=== PATIENT | female | born 2000 | race African-American/Black ===

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

== ENCOUNTER 2022-04-29 17:49 | Emergency (ER) | payer OTHER ==
[2022-04-29 18:30] VITALS: BP 118/62; PULSE 95; RESP 18; TEMP 98; BMI 21.6
[2022-04-29 20:59] LABS: EPI CELLS 11 /uL (0-25.1); HYALINE CASTS 164 /uL (0-3.1); URINE APPEARANCE TURBID; URINE BACTERIA 1730 /uL (0-1359); URINE BILIRUBIN 2+ (NEGATIVE); URINE COLOR RED; URINE GLUCOSE (UA) NEGATIVE (NEGATIVE); URINE KETONE NEGATIVE (NEGATIVE); URINE LEUK ESTERASE 2+ (NEGATIVE); URINE NITRITE POSITIVE (NEGATIVE); URINE PROTEIN 3+ (NEGATIVE); URINE RBC 10249 /uL (0-23.9); URINE UROBILINOGEN 0.2 mg/dL (0.2-1.0); URINE WBC 502 /uL (0-25.8)
[2022-04-29 21:03] LABS: HCG,QUALITATIVE URINE Positive
[2022-04-29 21:11] LABS: BASO % 0.6 % (0-2.0); HEMATOCRIT 38.6 % (32.4-45.2); HEMOGLOBIN 12.2 GM/dL (10.7-15.3); LYMPH % 20.1 % (8-40); MCH 24.9 pg (25.7-33.7); MCHC 31.7 g/dl (32.0-36.0); MEAN CELL VOLUME 78.6 fl (80-96); MEAN PLT VOLUME 8.5 fl (7.5-11.1); MONO % 10.3 % (3.8-10.2); PLATELET COUNT 348 10^3/uL (134-434); RBC 4.91 M/mm3 (3.60-5.2); RDW 15.9 % (11.6-15.6)
[2022-04-29 21:39] LABS: CALCIUM 8.8 mg/dL (8.5-10.1)
[2022-04-29 21:40] LABS: ALBUMIN 3.8 g/dl (3.4-5.0); BLOOD UREA NITROGEN 3.6 mg/dL (7-18)
[2022-04-29 21:43] LABS: CREATININE 0.6 mg/dL (0.55-1.3)
[2022-04-29 21:45] LABS: BILIRUBIN,TOTAL 0.4 mg/dL (0.2-1); TOT PROT 7.8 g/dl (6.4-8.2)
== END 2022-04-30 00:18 | disposition home or self-care (01) ==
LOC: JERFT 17:49 → JER 17:49 → JERFT 04-30 00:18
DX: O20.9 Hemorrhage in early pregnancy, unspecified (principal); Z3A.01 Less than 8 weeks gestation of pregnancy
CPT/HCPCS: 36415; 76817-TC; 80053; 81003; 84702; 84703; 85025; 86850; 86900; 86901; 87086; 99284-25

== ENCOUNTER 2022-05-01 18:10 | Emergency (ER) | payer OTHER ==
[2022-05-01 18:29] VITALS: BP 112/64; PULSE 87; RESP 20; TEMP 98.1; BMI 21.6
== END 2022-05-01 20:21 | disposition home or self-care (01) ==
LOC: JERFT 18:10 → JER 18:10 → JERFT 20:21
DX: O03.9 Complete or unspecified spontaneous abortion without complication (principal); Z3A.01 Less than 8 weeks gestation of pregnancy
CPT/HCPCS: 36415; 84702; 99283-25

== ENCOUNTER 2022-08-20 00:09 | Emergency (ER) | payer OTHER ==
[2022-08-20 00:20] VITALS: BP 110/60; PULSE 91; RESP 18; TEMP 97.7; BMI 22.4
[2022-08-20 01:49] LABS: BASO % 0.3 % (0-2.0); HEMATOCRIT 34.3 % (32.4-45.2); HEMOGLOBIN 11.7 GM/dL (10.7-15.3); LYMPH % 6.9 % (8-40); MCH 26.5 pg (25.7-33.7); MCHC 34.1 g/dl (32.0-36.0); MEAN CELL VOLUME 77.7 fl (80-96); MEAN PLT VOLUME 8.1 fl (7.5-11.1); NEUT % 82.8 % (42.8-82.8); PLATELET COUNT 229 10^3/uL (134-434); RBC 4.42 M/mm3 (3.60-5.2); RDW 15.9 % (11.6-15.6); WHITE BLOOD COUNT 17.8 K/mm3 (4.0-10.0)
[2022-08-20] MEDS ORDERED: ACETAMINOPHEN 1000 MG/100 ML BAG IVPB ONE (01:50)
[2022-08-20] MEDS ORDERED: SODIUM CHLORIDE 0.9% 500 ML INFUS.BAG IV ONE ×2 (01:53→04:05)
[2022-08-20 01:58] LABS: INR 1.33 (0.83-1.09); PROTHROMBIN TIME (PATIENT) 15.4 SEC (9.7-13.0)
[2022-08-20 02:00] LABS: ACTIVATED PTT 27.1 SECONDS (25.2-36.5)
[2022-08-20] MEDS ORDERED: ACETAMINOPHEN INJECTION 100 ML IVPB ONE (02:01)
[2022-08-20 02:12] LABS: POTASSIUM 3.5 mmol/L (3.5-5.1)
[2022-08-20] MEDS ORDERED: MAG HYDROX/AL HYDROX/SIMETH 30 ML UNIT-DOSE CUP PO ONE (02:13)
[2022-08-20] MEDS ORDERED: ONDANSETRON 4 MG/2 ML VIAL IVPUSH ONE (02:13)
[2022-08-20] MEDS ORDERED: ONDANSETRON 4 MG/2 ML VIAL ONE (02:14)
[2022-08-20] MEDS ORDERED: MAG HYDROX/AL HYDROX/SIMETH 30 ML UNIT-DOSE CUP ONE (02:14)
[2022-08-20 02:15] LABS: ALBUMIN 3.7 g/dl (3.4-5.0); BLOOD UREA NITROGEN 8.5 mg/dL (7-18); CALCIUM 8.6 mg/dL (8.5-10.1)
[2022-08-20 02:18] LABS: CREATININE 0.6 mg/dL (0.55-1.3)
[2022-08-20 02:20] LABS: TOT PROT 7.1 g/dl (6.4-8.2)
[2022-08-20 02:30] LABS: BILIRUBIN,TOTAL 0.2 mg/dL (0.2-1)
[2022-08-20] MEDS ORDERED: morphine CARPU-JECT 2 MG/1 ML DISP.SYRIN IVPUSH ONE ×2 (02:49→04:00)
[2022-08-20 04:05] LABS: EPI CELLS 35 /uL (0-25.1); HYALINE CASTS 0 /uL (0-3.1); URINE APPEARANCE CLEAR; URINE BACTERIA 445 /uL (0-1359); URINE BILIRUBIN NEGATIVE (NEGATIVE); URINE COLOR ORANGE; URINE GLUCOSE (UA) NEGATIVE (NEGATIVE); URINE KETONE NEGATIVE (NEGATIVE); URINE LEUK ESTERASE TRACE (NEGATIVE); URINE NITRITE NEGATIVE (NEGATIVE); URINE PROTEIN TRACE (NEGATIVE); URINE RBC 1742 /uL (0-23.9); URINE UROBILINOGEN 0.2 mg/dL (0.2-1.0); URINE WBC 26 /uL (0-25.8)
[2022-08-20] MEDS ORDERED: morphine SULFATE 4 MG/ML VIAL IVPUSH ONE (05:59)
== END 2022-08-20 07:21 | disposition admitted as inpatient to this hospital (09) ==
LOC: JER 00:09 → UNDOADMIN 04:43 → JERBED 04:43 → JER 07:21
PROC: 3E033NZ Introduction of Analgesics, Hypnotics, Sedatives into Peripheral Vein, Percutaneous Approach (ICD-10-PCS; principal; 2022-08-20)
PROC: 3E033GC Introduction of Other Therapeutic Substance into Peripheral Vein, Percutaneous Approach (ICD-10-PCS; 2022-08-20)
PROC: 3E033GC Introduction of Other Therapeutic Substance into Peripheral Vein, Percutaneous Approach (ICD-10-PCS; 2022-08-20)
PROC: 3E033GC Introduction of Other Therapeutic Substance into Peripheral Vein, Percutaneous Approach (ICD-10-PCS; 2022-08-20)
PROC: 3E033GC Introduction of Other Therapeutic Substance into Peripheral Vein, Percutaneous Approach (ICD-10-PCS; 2022-08-20)
DX: O36.4XX1 Maternal care for intrauterine death, fetus 1 (principal); R10.30 Lower abdominal pain, unspecified; Z3A.00 Weeks of gestation of pregnancy not specified; Z20.822 Contact with and (suspected) exposure to COVID-19
CPT/HCPCS: 0241U-QW; 36415; 76817-TC; 80053; 81003; 84702; 85025; 85610; 85730; 86850; 86900; 86901; 87086; 93005; 93010; 99285-25

== ENCOUNTER 2023-01-30 01:22 | Emergency (ER) | payer OTHER ==
[2023-01-30 01:33] VITALS: BP 100/59; PULSE 79; RESP 18; TEMP 98.4
[2023-01-30] MEDS ORDERED: ACETAMINOPHEN 500 MG TABLET (FP) PO ONE (03:02)
[2023-01-30] MEDS ORDERED: ACETAMINOPHEN 325 MG TABLET (FP) ONE (03:05)
== END 2023-01-30 04:12 | disposition home or self-care (01) ==
LOC: JER 01:22
DX: R10.9 Unspecified abdominal pain (principal); R05.9 Cough, unspecified; R07.9 Chest pain, unspecified; M79.605 Pain in left leg; Z20.822 Contact with and (suspected) exposure to COVID-19
CPT/HCPCS: 0241U-QW; 71046-TC-FY; 93005; 93010; 99285-25

== ENCOUNTER 2024-03-01 17:29 | Emergency (ER) | payer OTHER ==
[2024-03-01 18:21] VITALS: BP 113/69; PULSE 71; RESP 18; TEMP 98.8; BMI 20.9
[2024-03-01] MEDS ORDERED: AZITHROMYCIN 500 MG TABLET ONE (18:43)
[2024-03-01] MEDS ORDERED: ONDANSETRON *ODT* 4 MG TABLET ONE (18:43)
[2024-03-01] MEDS: ONDANSETRON *ODT* 4 MG TABLET SL ONE (18:48)
[2024-03-01] MEDS: AZITHROMYCIN 500 MG TABLET PO ONE (19:11)
[2024-03-01] MEDS ORDERED: metroNIDAZOLE 250 MG TABLET ONE (19:16)
[2024-03-01] MEDS: metroNIDAZOLE 500 MG TABLET PO ONE (19:22)
[2024-03-01] MEDS: CEFUROXIME AXETIL 500 MG TABLET PO ONE (19:47)
== END 2024-03-01 20:09 | disposition home or self-care (01) ==
LOC: JER 17:29
DX: O21.9 Vomiting of pregnancy, unspecified (principal); O98.311 Other infections with a predominantly sexual mode of transmission complicating pregnancy, first trimester; A74.9 Chlamydial infection, unspecified; O99.611 Diseases of the digestive system complicating pregnancy, first trimester; K04.7 Periapical abscess without sinus; Z3A.08 8 weeks gestation of pregnancy
CPT/HCPCS: 99283-25; Q0162

== ENCOUNTER 2025-01-31 08:30 | Emergency (ER) | payer OTHER ==
[2025-01-31 08:41] VITALS: BP 134/90; PULSE 69; RESP 18; TEMP 98.6; BMI 26.2
[2025-01-31] MEDS ORDERED: IBUPROFEN 400 MG TABLET (FP) PO ONE (09:03)
[2025-01-31] MEDS ORDERED: ACETAMINOPHEN 325 MG TABLET (FP) ONE (09:03)
[2025-01-31] MEDS: IBUPROFEN 400 MG TABLET (FP) PO ONE (09:07)
[2025-01-31] MEDS: ACETAMINOPHEN 325 MG TABLET (FP) PO ONE (09:08)
== END 2025-01-31 09:43 | disposition home or self-care (01) ==
LOC: JERFT 08:30
DX: R68.84 Jaw pain (principal); K02.9 Dental caries, unspecified; K04.7 Periapical abscess without sinus
CPT/HCPCS: 99283-25